=== PATIENT | male | born 1980 | race Caucasian/White ===

== ENCOUNTER 2024-06-15 08:00 | Outpatient (CLI) | payer OTHER ==
--- NOTE | 2024-06-15 11:59 | XRAY Report ---
PROCEDURE: Tib/Fib LT INDICATIONS: LEFT LOWER LEG OPEN WOUND TECHNIQUE: 2 views of the tibia and fibula were acquired. COMPARISON: None. FINDINGS: Bones: No fractures or dislocations. No suspicious bony lesions. Soft tissues: No suspicious soft tissue calcifications or masses. IMPRESSION: No acute bony abnormality. Reviewed by: Thierry Crews MD on 06/15/2024 11:57 AM PDT Approved by: Thierry Crews MD on 06/15/2024 11:57 AM PDT Station ID: [id number]
== END 2024-06-15 23:59 | disposition home or self-care (01) ==
LOC: DI.S 08:00
PROVIDERS: ATTEND Physician Assistant Medical
DX: S81.802A Unspecified open wound, left lower leg, initial encounter (principal)